=== PATIENT | female | born 1960 | race Caucasian/White ===

== ENCOUNTER 2025-01-27 19:55 | Emergency (ER) | payer OTHER, MEDICARE ==
[~2025-01-27] VITALS: Ht 157.5 cm; Wt 114.8 kg
[2025-01-27 20:00] VITALS: BP 154/80; PULSE 86; RESP 20; O2SAT 97
--- NOTE | 2025-01-27 20:14 | Physician Documentation ---
History of Present Illness ~ Chief Complaint: See Chief Complaint Stated Complaint: "BLOOD IN THROAT" Time Seen by MD: 20:27 HPI 64-year-old female with extensive history of a posterior nosebleed requiring surgical cauterization and other ENT procedures to get to stop bleeding earlier this year in September 2024. Patient is from [place] and has been down here going home on Thursday. Patient denies any symptoms of infection but states that there was some blood across her tongue earlier today and she is concerned that she can see blood at the back of her throat and worries that this is another nosebleed. Patient was prior to this nosebleed on Plavix and Eliquis but is now only on a baby aspirin. Requesting to look at hemoglobin and hematocrit as it has been low because of this incident. Patient denies any dizziness. Patient does have an appointment with her provider at the end of January. Medication Reconciliation Allergies: Coded Allergies: Sulfa (Sulfonamide Antibiotics) (Verified Allergy, Unknown, 01/27/25) amoxicillin (Verified Allergy, Unknown, 01/27/25) celecoxib (Verified Allergy, Unknown, 01/27/25) chlorpromazine (Verified Allergy, Unknown, 01/27/25) clindamycin (Verified Allergy, Unknown, 01/27/25) diclofenac (Verified Allergy, Unknown, 01/27/25) divalproex sodium (Verified Allergy, Unknown, 01/27/25) dopamine (Verified Allergy, Unknown, 01/27/25) "akathisia" doxycycline (Verified Allergy, Unknown, 01/27/25) droperidol (Verified Allergy, Unknown, 01/27/25) estradiol (Verified Allergy, Unknown, 01/27/25) ferrous sulfate (Verified Allergy, Unknown, 01/27/25) gabapentin (Verified Allergy, Unknown, 01/27/25) lamotrigine (Verified Allergy, Unknown, 01/27/25) metoclopramide (Verified Allergy, Unknown, 01/27/25) penicillin V (Verified Allergy, Unknown, 01/27/25) piroxicam (Verified Allergy, Unknown, 01/27/25) pneumococcal vaccine (Verified Allergy, Unknown, 01/27/25) prednisone (Verified Allergy, Unknown, 01/27/25) ropinirole (Verified Allergy, Unknown, 01/27/25) warfarin (Verified Allergy, Unknown, 01/27/25) Physical Exam Vital Signs: Temperature: 98.2, Heart Rate: 86, Respiratory Rate: 20, BP: 154/80, Pulse Oximetry: 97, Weight: 114.800 Oxygen Flow Rate: 0 General Appearance: alert, WD/WN, no apparent distress Nose: normal inspection Mouth/Throat No obvious blood to the pharyngeal Progress Results/Orders Results/Orders Completed Orders - BEVERLEY CHAVEZ NP Hemogram (01/27/25 20:42) Vital Signs 01/27/25 01/27/25 20:00 22:32 Temp 98.2 98.2 Pulse 86 Resp 20 B/P (MAP) 154/80 Pulse Ox 97 O2 Flow Rate 0 Laboratory Tests Test 01/27/25 21:34 White Blood Count 10.8 Red Blood Count 4.58 Hemoglobin 11.1 L Hematocrit 34.9 L Mean Corpuscular Volume 76.2 L Mean Corpuscular Hemoglobin 24.2 L Mean Corpuscular Hemoglobin Concent 31.7 L Red Cell Distribution Width 16.7 H Platelet Count 434 Mean Platelet Volume 7.7 Hematology Comments Medical Decision Making Findings Patient seems to be very focused on any type of drainage that she finds in her mouth or her throat. She states that there was some red blood on her tongue earlier today and felt like was running down the back of her throat but never visualized the blood. Patient requested H&H as her last 1 in November was 10.8 over 35. Patient has consistent supportive follow-up with ENT and primary care she is visiting out of town. Patient is satting was evaluated and checked for the potential for posterior nosebleed. Departure Time of Disposition: 22:15 Disposition: 01 HOME / SELF CARE / HOMELESS Impression: Primary Impression: Anemia Additional Impression: Epistaxis, recurrent Condition: Stable Discharge Instructions: Nosebleed, Adult, [id number] Additional Instructions: Try to use some humidified air due to the moisture content of [place] versus [place] and [place]. Maintain appointments with ENT and primary continue to monitor and follow up as needed Referrals: NO PRIMARY CARE PROVIDER (PCP) Education Educated: Patient Educated regarding: diagnosis, treatment, need for follow up Signature Scribe Signature: The note accurately reflects work and decisions made by me.Beverley UJÁREZ 01/27/25 23:20 Attestation: The note accurately reflects work and decisions made by me.Beverley JUÁREZ 01/27/25 23:20 BEVERLEY CHAVEZ NP Jan 27, 2025 20:14
[2025-01-27 21:57] LABS: HEMATOCRIT 34.9 % (35.0-45.0); HEMOGLOBIN 11.1 g/dl (12.0-16.0); MEAN CORPUSCULAR HEMOGLOBIN 24.2 PG (27.0-31.0); MEAN CORPUSCULAR HGB CONC 31.7 g/dL (33.0-36.5); MEAN CORPUSCULAR VOLUME 76.2 FL (78-98); MEAN PLATELET VOLUME 7.7 FL (7.4-10.4); PLATELET COUNT 434 X10'3 (140-440); RED BLOOD COUNT 4.58 X10'6 (4.20-5.60); RED CELL DISTRIBUTION WIDTH 16.7 % (11.5-14.5); WHITE BLOOD COUNT 10.8 X10'3 (4.5-11.0)
[2025-01-27 22:32] VITALS: TEMP 98.2
== END 2025-01-27 22:33 | disposition home or self-care (01) ==
LOC: ER 19:56
DX: D64.9 Anemia, unspecified (principal); R04.0 Epistaxis; Z88.2 Allergy status to sulfonamides; Z88.1 Allergy status to other antibiotic agents; Z88.8 Allergy status to other drugs, medicaments and biological substances; Z88.0 Allergy status to penicillin; Z79.02 Long term (current) use of antithrombotics/antiplatelets; Z88.7 Allergy status to serum and vaccine
CPT/HCPCS: 36415; 85027; 99283